=== PATIENT | female | born 1955 | race Caucasian/White ===

== ENCOUNTER 2021-01-21 12:21 | Emergency (ER) | payer MEDICARE, OTHER ==
[~2021-01-21 12:21] MED LIST: AUGMENTIN 875-1 EACH PO; BACLOFEN 10MG T10 MG PO; CIPRO500 MG PO; CYMBALTA20 MG PO; IBUPROFEN800 MG PO; LEVAQUIN500 MG PO; LIPITOR 10MG TA10 MG PO; MEDROL 4MG DOSEP4 MG PO; METRONIDAZOLE500 MG PO; NORCO 5-325 TA1 EACH PO; ONDANSETRON ODT4 MG SL; PERCOCET 10/321 EACH PO; PERCOCET 5-3251 EACH PO; PRILOSEC20 MG PO; REMERON15 MG PO; SEROQUEL200 MG PO; SYNTHROID25 MCG PO; TRAZODONE 100M100 MG PO; VIBRAMYCIN100 MG PO; VISTARIL50 MG PO; WELLBUTRIN75 MG PO; XANAX0.5 MG PO; ZOFRAN4 MG PO; ZOFRAN8 MG PO
[2021-01-21 15:40] LABS: BASOPHIL 0.4 % (0-2); EOSINOPHIL 0.8 % (0-7); HCT 42.8 % (37.0-47.0); HGB 13.3 g/dl (12.5-16.0); LYMPHOCYTE 18.9 % (15-48); MCH 26.9 pg (25.0-31.0); MCHC 31.1 g/dL (32.0-36.0); MCV 86.6 fL (78.0-100.0); MONOCYTE 6.4 % (0-12); MPV 10.4 fL (6.0-9.5); NEUTROPHIL 72.9 % (41-80); NRBC 0; PLT 299 K/uL (150-400); RBC 4.94 M/uL (4.20-5.40); WBC 13.2 K/uL (4.0-10.5)
[2021-01-21 16:02] LABS: IRON % SATURATION 13.8 %SAT (20-50)
[2021-01-21 16:04] LABS: ALBUMIN 3.7 g/dL (3.4-5.0); BILIRUBIN - TOTAL 0.4 mg/dL (0.2-1.0); BUN/CREAT RATIO (CALC) 23.4 RATIO; CREATININE 0.94 mg/dL (0.51-0.95); GLOBULIN (CALCULATION) 4.3 g/dL; MAGNESIUM 1.9 mg/dL (1.8-2.4); POTASSIUM 3.6 mmol/L (3.5-5.1)
[2021-01-21] MEDS ORDERED: COLACE100 MG PO (17:28)
[2021-01-21] MEDS ORDERED: BENTYL10 MG PO (17:28)
== END 2021-01-21 18:31 | disposition home or self-care (01) ==
LOC: FER 12:21
PROVIDERS: Emergency Medicine
DX: K43.9 Ventral hernia without obstruction or gangrene (principal); J44.9 Chronic obstructive pulmonary disease, unspecified
CPT/HCPCS: 36415; 80053; 83540; 83550; 83605; 83615; 83690; 83735; 84145; 85025; 93005; J1170; J2405; Q9967

== ENCOUNTER 2021-02-03 14:36 | Emergency (ER) | payer MEDICARE, OTHER ==
[~2021-02-03 14:36] MED LIST changes: +BENTYL10 MG PO; +COLACE100 MG PO
[2021-02-03 19:32] LABS: BASOPHIL 0.5 % (0-2); EOSINOPHIL 1.9 % (0-7); HCT 41.4 % (37.0-47.0); HGB 13.1 g/dl (12.5-16.0); LYMPHOCYTE 20.1 % (15-48); MCH 27.2 pg (25.0-31.0); MCHC 31.6 g/dL (32.0-36.0); MCV 86.1 fL (78.0-100.0); MONOCYTE 7.6 % (0-12); MPV 10.2 fL (6.0-9.5); NRBC 0; PLT 324 K/uL (150-400); RBC 4.81 M/uL (4.20-5.40); RDW 14.7 % (11.5-14.0); WBC 12.9 K/uL (4.0-10.5)
[2021-02-03 19:51] LABS: ALBUMIN 3.7 g/dL (3.4-5.0); BILIRUBIN - TOTAL 0.5 mg/dL (0.2-1.0); BUN/CREAT RATIO (CALC) 16.1 RATIO; CREATININE 0.87 mg/dL (0.51-0.95); GLOBULIN (CALCULATION) 4.4 g/dL; POTASSIUM 4.1 mmol/L (3.5-5.1); TOTAL PROTEIN 8.1 g/dL (6.4-8.2)
[2021-02-03 19:57] LABS: PRO-BNP 37 pg/mL (<125)
[2021-02-03] MEDS ORDERED: AUGMENTIN 875-1 EACH PO (21:57)
== END 2021-02-03 22:05 | disposition home or self-care (01) ==
LOC: FER 14:36
PROVIDERS: Emergency Medicine
DX: J32.9 Chronic sinusitis, unspecified (principal); R60.0 Localized edema; R06.02 Shortness of breath; I10 Essential (primary) hypertension; D64.9 Anemia, unspecified
CPT/HCPCS: 36415; 71045; 71275; 80053; 83880; 84484; 85025; 85379; 93005; Q9967

== ENCOUNTER 2021-08-04 22:05 | Emergency (ER) | payer MEDICARE, OTHER ==
[2021-08-05 00:12] LABS: BASOPHIL 0.3 % (0-2); EOSINOPHIL 0.6 % (0-7); HCT 43.2 % (37.0-47.0); HGB 13.6 g/dl (12.5-16.0); LYMPHOCYTE 12.3 % (15-48); MCHC 31.5 g/dL (32.0-36.0); MCV 85.9 fL (78.0-100.0); MONOCYTE 6.4 % (0-12); MPV 11.3 fL (6.0-9.5); NEUTROPHIL 80.2 % (41-80); NRBC 0; PLT 257 K/uL (150-400); RBC 5.03 M/uL (4.20-5.40); RDW 14.6 % (11.5-14.0); WBC 13.5 K/uL (4.0-10.5)
[2021-08-05 00:35] LABS: ALBUMIN 3.4 g/dL (3.4-5.0); BILIRUBIN - TOTAL 0.7 mg/dL (0.2-1.0); BUN/CREAT RATIO (CALC) 18.3 RATIO; CREATININE 0.82 mg/dL (0.51-0.95); GLOBULIN (CALCULATION) 3.9 g/dL; POTASSIUM 4.4 mmol/L (3.5-5.1); TOTAL PROTEIN 7.3 g/dL (6.4-8.2)
[2021-08-05] MEDS ORDERED: PREDNISONE 20MG20 MG PO (01:11)
[2021-08-05] MEDS ORDERED: METRONIDAZOLE500 MG PO (01:11)
[2021-08-05] MEDS ORDERED: NORCO 5-325 TA1 EACH PO (01:11)
[2021-08-05] MEDS ORDERED: PHENERGAN25 M1 PO (01:11)
[2021-08-05] MEDS ORDERED: CIPRO500 MG PO (01:11)
== END 2021-08-05 03:10 | disposition home or self-care (01) ==
LOC: FER 22:05
PROVIDERS: Internal Medicine
DX: K52.9 Noninfective gastroenteritis and colitis, unspecified (principal)
CPT/HCPCS: 36415; 80053; 83690; 85025; J1170; J2405; J2930

== ENCOUNTER 2021-10-12 07:16 | Emergency (ER) | payer MEDICARE, OTHER ==
[~2021-10-12 07:16] MED LIST changes: +PHENERGAN25 M1 PO; +PREDNISONE 20MG20 MG PO
== END 2021-10-12 11:20 | disposition home or self-care (01) ==
LOC: FER 07:16
DX: S20.212A Contusion of left front wall of thorax, initial encounter (principal); Z88.2 Allergy status to sulfonamides; Z88.8 Allergy status to other drugs, medicaments and biological substances; Z99.81 Dependence on supplemental oxygen; W19.XXXA Unspecified fall, initial encounter; Y92.009 Unspecified place in unspecified non-institutional (private) residence as the place of occurrence of the external cause
CPT/HCPCS: 71250; 72128; 72131

== ENCOUNTER 2022-01-25 12:00 | Inpatient (IN) | payer MEDICARE, OTHER ==
[~2022-01-25] VITALS: Ht 162.6 cm; Wt 130.4 kg
[2022-01-25] MEDS ORDERED: TIZANIDINE HCL2 M1 PO (13:58)
[2022-01-25] MEDS ORDERED: TRAMADOL HCL100 MG PO (13:58)
[2022-01-25] MEDS ORDERED: GABAPENTIN800 MG PO (13:59)
[2022-01-25 14:00] LABS: BASOPHIL 0.6 % (0-2); HCT 37.7 % (37.0-47.0); HGB 12.1 g/dl (12.5-16.0); LYMPHOCYTE 25.5 % (15-48); MCH 27.4 pg (25.0-31.0); MCHC 32.1 g/dL (32.0-36.0); MCV 85.5 fL (78.0-100.0); MONOCYTE 5.4 % (0-12); MPV 11.5 fL (6.0-9.5); NEUTROPHIL 64.6 % (41-80); NRBC 0; PLT 226 K/uL (150-400); RBC 4.41 M/uL (4.20-5.40); RDW 14.6 % (11.5-14.0); WBC 6.4 K/uL (4.0-10.5)
[2022-01-25] MEDS ORDERED: COZAAR50 MG PO (14:00)
[2022-01-25] MEDS ORDERED: INDERAL20 MG PO (14:00)
[2022-01-25] MEDS ORDERED: LASIX40 MG PO (14:01)
[2022-01-25 14:03] LABS: ALBUMIN 3.4 g/dL (3.4-5.0); BILIRUBIN - TOTAL 0.5 mg/dL (0.2-1.0); BUN/CREAT RATIO (CALC) 15.5 RATIO; CREATININE 1.1 mg/dL (0.51-0.95); GLOBULIN (CALCULATION) 3.4 g/dL; POTASSIUM 3.4 mmol/L (3.5-5.1); TOTAL PROTEIN 6.8 g/dL (6.4-8.2)
[2022-01-25 14:28] LABS: BILIRUBIN NEGATIVE (NEGATIVE); BLOOD 2+ Ery/uL (NEGATIVE); CLARITY CLEAR (CLEAR); COLOR YELLOW (YELLOW); GLUCOSE (U) NORMAL (NORMAL); LEUKOCYTES 2+ Leu/uL (NEGATIVE); NITRITE NEGATIVE (NEGATIVE); PROTEIN NEGATIVE (NEGATIVE); SPECIFIC GRAVITY 1.015 (1.001-1.030); UROBILINOGEN 0.2 mg/dL (0.2-1.0)
[2022-01-25 14:47] LABS: BACTERIA 2+; URINARY WBC 20-50
[2022-01-25 15:40] LABS: CORONAVIRUS 2019 SARS-COV-2 NEGATIVE (NEGATIVE); INFLUENZA A NAA NEGATIVE (NEGATIVE)
[2022-01-26 05:32] LABS: BUN/CREAT RATIO (CALC) 14.7 RATIO; CREATININE 0.95 mg/dL (0.51-0.95); POTASSIUM 4.2 mmol/L (3.5-5.1)
[2022-01-26 06:03] LABS: BASOPHIL 0.7 % (0-2); EOSINOPHIL 3.5 % (0-7); HCT 39.2 % (37.0-47.0); HGB 11.9 g/dl (12.5-16.0); LYMPHOCYTE 35.9 % (15-48); MCH 27.2 pg (25.0-31.0); MCHC 30.4 g/dL (32.0-36.0); MPV 11.7 fL (6.0-9.5); NEUTROPHIL 50.7 % (41-80); NRBC 0; PLT 230 K/uL (150-400); RBC 4.37 M/uL (4.20-5.40); RDW 14.9 % (11.5-14.0); WBC 4.5 K/uL (4.0-10.5)
[2022-01-26 06:23] LABS: MCV 89.7 fL (78.0-100.0)
--- NOTE | 2022-01-27 13:01 | NUR ---
01/27/22 Ms. Hunter shares a home with a daughter and son. She has a rollator and cane. Ms. Hunter is followed at [facility] for treatment of anx / depression. [facility] is current and have been notified of admission. - Please call [facility] at [phone] if patient is discharged over the weekend.
--- NOTE | 2022-01-28 10:08 | NUR ---
Pt triggered nutrition screen d/t MST of 5; patient reports recent wt loss; currently on a regular diet with 100% avg intake since admissioin. Pt admitted with UTI and acute illness; poor oral intake could be associaated with acute illness and increased fatigue. RD to monitor for additional concerns and POC. Low Nutrition Risk
--- NOTE | 2022-01-28 15:56 | NUR ---
01/28 [facility] was notified of anticipated discharge for 01/29.
--- NOTE | 2022-01-28 16:02 | NUR ---
PT REPORTS THAT SHE HAS HOME O2 @ 3L. SHE HAS A CONCENTRATOR AND PORTABLE OXYGEN TANKS. ADVISED [employer].
[2022-01-29] MEDS ORDERED: BACTRIM DS TAB1 EACH PO ×2 (10:17→10:58)
== END 2022-01-29 12:39 | disposition home health service (06) | DRG 602 ==
LOC: FTCU 12:00 → FMS 01-28 14:57
PROVIDERS: ADMIT Internal Medicine
DX: L03.116 Cellulitis of left lower limb (principal); G93.41 Metabolic encephalopathy; J84.10 Pulmonary fibrosis, unspecified; Z20.822 Contact with and (suspected) exposure to COVID-19; K21.9 Gastro-esophageal reflux disease without esophagitis; D50.9 Iron deficiency anemia, unspecified; F41.9 Anxiety disorder, unspecified; G25.81 Restless legs syndrome; E78.00 Pure hypercholesterolemia, unspecified; J44.9 Chronic obstructive pulmonary disease, unspecified; R29.6 Repeated falls; I10 Essential (primary) hypertension; F32.9 Major depressive disorder, single episode, unspecified; E55.9 Vitamin D deficiency, unspecified; E03.9 Hypothyroidism, unspecified; Z99.81 Dependence on supplemental oxygen; Z90.49 Acquired absence of other specified parts of digestive tract; Z98.890 Other specified postprocedural states; Z88.2 Allergy status to sulfonamides; Z88.8 Allergy status to other drugs, medicaments and biological substances; Z79.899 Other long term (current) drug therapy
CPT/HCPCS: 36415; 36600; 80048; 80053; 80202; 81001; 82803; 85025; 87040; 87088; 93971; 94640; 97110; 97116; 97162; 97166; 97530; 97530-GP; 97535; G0378; J0696; J1650; J3370; J7050; U0002

== ENCOUNTER 2022-03-05 19:25 | Emergency (ER) | payer MEDICARE, OTHER ==
[~2022-03-05 19:25] MED LIST changes: +BACTRIM DS TAB1 EACH PO; +COZAAR50 MG PO; +GABAPENTIN800 MG PO; +INDERAL20 MG PO; +LASIX40 MG PO; +TIZANIDINE HCL2 M1 PO; +TRAMADOL HCL100 MG PO
[2022-03-05 21:00] LABS: BASOPHIL 0.4 % (0-2); EOSINOPHIL 1.6 % (0-7); HCT 38.3 % (37.0-47.0); HGB 11.8 g/dl (12.5-16.0); LYMPHOCYTE 24.1 % (15-48); MCH 26.8 pg (25.0-31.0); MCHC 30.8 g/dL (32.0-36.0); MONOCYTE 6.7 % (0-12); MPV 11.3 fL (6.0-9.5); NEUTROPHIL 66.8 % (41-80); NRBC 0; PLT 239 K/uL (150-400); RDW 14.9 % (11.5-14.0)
[2022-03-05 21:18] LABS: ALBUMIN 3.5 g/dL (3.4-5.0); BILIRUBIN - TOTAL 0.6 mg/dL (0.2-1.0); BUN/CREAT RATIO (CALC) 20.4 RATIO; CREATININE 0.93 mg/dL (0.51-0.95); GLOBULIN (CALCULATION) 3.5 g/dL; POTASSIUM 3.9 mmol/L (3.5-5.1)
[2022-03-05 21:21] LABS: INR 1.08 (0.9-1.2); PROTHROMBIN TIME 13.4 SECONDS (11.8-13.4)
== END 2022-03-06 01:30 | disposition home or self-care (01) ==
LOC: FER 19:25
PROVIDERS: Emergency Medicine
DX: N93.8 Other specified abnormal uterine and vaginal bleeding (principal); I11.0 Hypertensive heart disease with heart failure; I50.9 Heart failure, unspecified; Z79.899 Other long term (current) drug therapy
CPT/HCPCS: 36415; 80053; 85025; 85610; J7030; Q9967

== ENCOUNTER 2022-06-09 14:06 | Inpatient (IN) | payer MEDICARE, OTHER ==
[~2022-06-09] VITALS: Ht 167.6 cm; Wt 123.1 kg
[2022-06-09 15:35] LABS: LACTIC ACID 0.8 mmol/L (0.4-1.9)
[2022-06-09 15:45] LABS: BASOPHIL 0.3 % (0-2); EOSINOPHIL 1.7 % (0-7); HCT 36.6 % (37.0-47.0); HGB 11.5 g/dl (12.5-16.0); LYMPHOCYTE 27.8 % (15-48); MCH 27.4 pg (25.0-31.0); MCHC 31.4 g/dL (32.0-36.0); MCV 87.4 fL (78.0-100.0); MONOCYTE 6.2 % (0-12); MPV 12.2 fL (6.0-9.5); NEUTROPHIL 63.8 % (41-80); NRBC 0; PLT 257 K/uL (150-400); RBC 4.19 M/uL (4.20-5.40); RDW 14.9 % (11.5-14.0); WBC 6.3 K/uL (4.0-10.5)
[2022-06-09 15:50] LABS: INR 0.99 (0.9-1.2); PROTHROMBIN TIME 12.8 SECONDS (11.9-13.9); PTT 27.5 SECONDS (24.9-34.6)
[2022-06-09 15:51] LABS: D-DIMER 0.61 ug/mLFEU (0.00-0.41)
[2022-06-09 16:36] LABS: CORONAVIRUS 2019 SARS-COV-2 NEGATIVE (NEGATIVE); INFLUENZA A NAA NEGATIVE (NEGATIVE)
[2022-06-09 16:50] LABS: ALBUMIN 3.4 g/dL (3.4-5.0); BILIRUBIN - TOTAL 0.6 mg/dL (0.2-1.0); CREATININE 1.67 mg/dL (0.51-0.95); GLOBULIN (CALCULATION) 3.8 g/dL; TOTAL PROTEIN 7.2 g/dL (6.4-8.2)
[2022-06-10 06:09] LABS: BASOPHIL 0.4 % (0-2); EOSINOPHIL 2.1 % (0-7); HCT 37.6 % (37.0-47.0); HGB 11.7 g/dl (12.5-16.0); LYMPHOCYTE 36.2 % (15-48); MCH 27.4 pg (25.0-31.0); MCHC 31.1 g/dL (32.0-36.0); MCV 88.1 fL (78.0-100.0); MONOCYTE 7.3 % (0-12); MPV 11.4 fL (6.0-9.5); NEUTROPHIL 53.8 % (41-80); NRBC 0; PLT 244 K/uL (150-400); RBC 4.27 M/uL (4.20-5.40); RDW 14.8 % (11.5-14.0); WBC 5.2 K/uL (4.0-10.5)
[2022-06-10 06:43] LABS: BILIRUBIN - TOTAL 0.3 mg/dL (0.2-1.0); CREATININE 1.31 mg/dL (0.51-0.95); GLOBULIN (CALCULATION) 3.6 g/dL; POTASSIUM 4.1 mmol/L (3.5-5.1); TOTAL PROTEIN 6.6 g/dL (6.4-8.2)
[2022-06-10] MEDS ORDERED: MIRAPEX0.25 MG PO (10:51)
[2022-06-10] MEDS ORDERED: TIZANIDINE HCL4 M1 PO (10:56)
[2022-06-10] MEDS ORDERED: BENTYL10 MG PO (11:00)
[2022-06-10] MEDS ORDERED: XANAX0.5 MG PO (11:02)
--- NOTE | 2022-06-10 14:21 | NUR ---
KAT CAME TO ME TO LET ME KNOW THAT THE PATIENT WAS TAKING XANXA OUT OF PURSE. I WENT INTO THE ROOM TO EXPLAIN THAT WE NEEDED TO LOCK UP THE MEDICATION AND THAT SHE NEEDED NOT TO TAKE ANY MEDICATIONS FROM HER PURSE. I WAS GOING TO LOCK IT UP AND IF SHE NEEDED XANAX IT WAS ORDERED BY THE MD AND WE WOULD GIVE IT TO HER. SHE STATED THAT SHE NEEDED IT RIGHT THEN AND COULD NOT WAIT FOR US. AND STATED THAT SHE ATLEAST TOLD HER. I THANKED HER FOR LETTING US KNOW WHAT SHE DID BUT NEXT TO CALL OUT FOR THE MEDICATION. I LOCKED THE MEDICATION UP IN HER DRAWER. I LET DR LOPEZ KNOW THAT SHE TOOK IT AND THAT IT WAS NOW LOCKED UP.
[2022-06-11 06:11] LABS: BASOPHIL 0.6 % (0-2); EOSINOPHIL 2.9 % (0-7); HCT 35.9 % (37.0-47.0); HGB 11.3 g/dl (12.5-16.0); LYMPHOCYTE 30.7 % (15-48); MCH 27.4 pg (25.0-31.0); MCHC 31.5 g/dL (32.0-36.0); MCV 87.1 fL (78.0-100.0); MONOCYTE 6.7 % (0-12); MPV 11.9 fL (6.0-9.5); NEUTROPHIL 58.9 % (41-80); NRBC 0; PLT 217 K/uL (150-400); RBC 4.12 M/uL (4.20-5.40); RDW 14.6 % (11.5-14.0); WBC 5.2 K/uL (4.0-10.5)
[2022-06-11 06:45] LABS: CREATININE 1.01 mg/dL (0.51-0.95); MAGNESIUM 1.5 mg/dL (1.8-2.4); POTASSIUM 3.5 mmol/L (3.5-5.1)
[2022-06-12] MEDS ORDERED: MUCINEX1200 MG PO (12:40)
[2022-06-12] MEDS ORDERED: CEFDINIR300 MG PO (12:40)
== END 2022-06-12 14:07 | disposition home or self-care (01) | DRG 193 ==
LOC: FER 14:06 → FMS 18:48
PROVIDERS: Emergency Medicine; Nurse Practitioner; ADMIT Internal Medicine
DX: J18.9 Pneumonia, unspecified organism (principal); J96.21 Acute and chronic respiratory failure with hypoxia; J96.22 Acute and chronic respiratory failure with hypercapnia; N17.9 Acute kidney failure, unspecified; Z20.822 Contact with and (suspected) exposure to COVID-19; J84.10 Pulmonary fibrosis, unspecified; M54.9 Dorsalgia, unspecified; G89.29 Other chronic pain; Z86.711 Personal history of pulmonary embolism; Z99.81 Dependence on supplemental oxygen; R79.89 Other specified abnormal findings of blood chemistry; I50.9 Heart failure, unspecified; K21.9 Gastro-esophageal reflux disease without esophagitis; E03.9 Hypothyroidism, unspecified; F41.9 Anxiety disorder, unspecified; F32.A Depression, unspecified; Z79.899 Other long term (current) drug therapy; Z88.2 Allergy status to sulfonamides; Z98.51 Tubal ligation status; Z98.1 Arthrodesis status; E78.5 Hyperlipidemia, unspecified; M19.90 Unspecified osteoarthritis, unspecified site; E83.42 Hypomagnesemia; Z91.81 History of falling; Z28.310 Unvaccinated for COVID-19
CPT/HCPCS: 36415; 36600; 71045; 80048; 80053; 82803; 83605; 83735; 83880; 84145; 84484; 85025; 85379; 85610; 85730; 87040; 93005; 94010; 94667; 94668; 94760; 94762; J0456; J0696; J1100; J1650; J2270; J2405; J7030; J7050; J7120; U0002